=== PATIENT | female | born 1975 | race Caucasian/White ===

== ENCOUNTER 2023-06-30 13:35 | Emergency (ER) | payer OTHER, SELFPAY ==
[2023-06-30] MEDS ORDERED: Sodium Chloride 0.9% 10 ML Syringe FLUSH PRN (13:51)
[2023-06-30 14:00] LABS: BASOPHILS PERCENT AUTO 0.3 % (0.2-1.2); EOSINOPHILS ABSOLUTE AUTO 0.1 x10^3/uL (0.0-0.5); EOSINOPHILS PERCENT AUTO 0.8 % (0.0-4.0); HEMATOCRIT 41.2 % (33.0-47.0); HEMOGLOBIN 14.3 g/dL (12.0-16.0); LYMPHOCYTES ABSOLUTE AUTO 1.8 x10^3/uL (1.0-4.8); LYMPHOCYTES PERCENT AUTO 23.9 % (25.0-50.0); MEAN CORPUSCULAR HEMOGLOBIN 32.4 pg (26.0-32.0); MEAN CORPUSCULAR HGB CONC 34.7 g/dL (32.0-36.0); MEAN CORPUSCULAR VOLUME 93.2 fL (78.0-93.0); MONOCYTES ABSOLUTE AUTO 0.4 x10^3/uL (0.0-0.8); MONOCYTES PERCENT AUTO 5.9 % (2.0-11.0); NEUTROPHILS ABSOLUTE AUTO 5.2 x10^3/uL (1.8-7.7); NEUTROPHILS PERCENT AUTO 69.1 % (50.0-80.0); PLATELET COUNT,PLT 215 x10^3/uL (130-400); RED BLOOD CELL COUNT 4.42 x10^6/uL (4.00-5.50); WHITE BLOOD CELL COUNT,WBC 7.5 x10^3/uL (4.0-10.0)
[2023-06-30] MEDS: Sodium Chloride 0.9% 1,000 ML IV SCH (14:00)
[2023-06-30] MEDS: Ondansetron 4 MG/2 ML SDV IVPUSH ONE (14:17)
[2023-06-30] MEDS: Ketorolac 15 MG/ML SDV IVPUSH ONE (14:17)
[2023-06-30] MEDS: HYDROmorphone 0.5 MG/0.5 ML Syringe IVPUSH ONE (14:18)
[2023-06-30 14:32] LABS: A/G RATIO 1.13; ALANINE AMINOTRANSFERASE,ALT 13 U/L (14-59); ALBUMIN 4.3 g/dL (3.4-5.0); ALKALINE PHOSPHATASE 71 U/L (46-116); ANION GAP 14.9 mmol/L (5-15); ASPARTATE AMNIOTRANSFERASE,AST 14 U/L (15-37); BLOOD UREA NITROGEN,BUN 13 mg/dL (7-18); CALCIUM 9.8 mg/dL (8.5-10.1); CARBON DIOXIDE,CO2 30 mmol/L (21-32); CHLORIDE,CL 102 mmol/L (98-107); ESTIMATED GFR 70 mL/min (>=60); GLUCOSE RANDOM 70 mg/dL (70-99); LIPASE 75 U/L (19-71); POTASSIUM,K 3.9 mmol/L (3.5-5.1); PROTEIN TOTAL,TP 8.1 g/dL (6.4-8.2); SODIUM,NA 143 mmol/L (136-145)
[2023-06-30 14:33] LABS: C-REACTIVE PROTEIN < 0.50 mg/dL (<=0.50)
[2023-06-30 15:03] LABS: INR 0.9 (0.9-1.1); PROTHROMBIN TIME 9.6 SEC (8.9-11.5); PTT,PARTIAL THROMBOPLSTIN TIME 25.6 SEC (21.9-33.8)
== END 2023-06-30 15:30 | disposition home or self-care (01) ==
LOC: VM.ED 13:35
DX: R10.11 Right upper quadrant pain (principal); Z87.891 Personal history of nicotine dependence; Z88.6 Allergy status to analgesic agent; Z91.030 Bee allergy status
CPT/HCPCS: 80053; 83690; 83735; 84484; 85025; 85610; 85730; 86140; 93005; 96361; 96374; 96375; 99285; J1170; J1885; J2405; J7030; 93010; 99284

== ENCOUNTER 2023-08-14 21:02 | Emergency (ER) | payer SELFPAY ==
[2023-08-14 21:52] LABS: BASOPHILS PERCENT AUTO 0.2 % (0.2-1.2); EOSINOPHILS ABSOLUTE AUTO 0.2 x10^3/uL (0.0-0.5); EOSINOPHILS PERCENT AUTO 2.9 % (0.0-4.0); HEMATOCRIT 38.4 % (33.0-47.0); HEMOGLOBIN 13.3 g/dL (12.0-16.0); IMMATURE GRAN ABSOLUTE AUTO 0.01 x10^3/uL (0.00-0.07); LYMPHOCYTES ABSOLUTE AUTO 2.5 x10^3/uL (1.0-4.8); LYMPHOCYTES PERCENT AUTO 44.8 % (25.0-50.0); MEAN CORPUSCULAR HEMOGLOBIN 31.9 pg (26.0-32.0); MEAN CORPUSCULAR HGB CONC 34.6 g/dL (32.0-36.0); MEAN CORPUSCULAR VOLUME 92.1 fL (78.0-93.0); MONOCYTES ABSOLUTE AUTO 0.4 x10^3/uL (0.0-0.8); MONOCYTES PERCENT AUTO 7.5 % (2.0-11.0); NEUTROPHILS ABSOLUTE AUTO 2.4 x10^3/uL (1.8-7.7); NEUTROPHILS PERCENT AUTO 44.4 % (50.0-80.0); PLATELET COUNT,PLT 229 x10^3/uL (130-400); RED BLOOD CELL COUNT 4.17 x10^6/uL (4.00-5.50); WHITE BLOOD CELL COUNT,WBC 5.5 x10^3/uL (4.0-10.0)
[2023-08-14 22:01] LABS: A/G RATIO 1.24; ALANINE AMINOTRANSFERASE,ALT 21 U/L (14-59); ALBUMIN 4.1 g/dL (3.4-5.0); ALKALINE PHOSPHATASE 71 U/L (46-116); ANION GAP 18.7 mmol/L (5-15); ASPARTATE AMNIOTRANSFERASE,AST 14 U/L (15-37); BILIRUBIN TOTAL 0.9 mg/dL (0.2-1.0); BLOOD UREA NITROGEN,BUN 9 mg/dL (7-18); CARBON DIOXIDE,CO2 23 mmol/L (21-32); CHLORIDE,CL 107 mmol/L (98-107); CREATININE 0.9 mg/dL (0.55-1.02); ESTIMATED GFR 79 mL/min (>=60); GLUCOSE RANDOM 103 mg/dL (70-99); POTASSIUM,K 3.7 mmol/L (3.5-5.1); PROTEIN TOTAL,TP 7.4 g/dL (6.4-8.2); SODIUM,NA 145 mmol/L (136-145)
[2023-08-14 22:07] LABS: APPEARANCE,URINE CLEAR (CLEAR); BILIRUBIN,URINE NEGATIVE (NEGATIVE); COLOR,URINE YELLOW (YELLOW); GLUCOSE,URINE NEGATIVE (NEGATIVE); KETONES,URINE NEGATIVE (NEGATIVE); LEUKOCYTE ESTERASE,URINE SMALL (NEGATIVE); NITRITE,URINE NEGATIVE (NEGATIVE); OCCULT BLOOD,URINE NEGATIVE (NEGATIVE); PH,URINE 5.5 (5.0-8.0); PROTEIN,URINE NEGATIVE (NEGATIVE); UROBILINOGEN,URINE 0.2 EU/dL (0.2)
[2023-08-14 22:10] LABS: AMPHETAMINES SCREEN, URINE NEGATIVE (NEGATIVE); BARBITURATE SCREEN,URINE NEGATIVE (NEGATIVE); BENZODIAZEPINES SCREEN,URINE NEGATIVE (NEGATIVE); COCAINE METABOLITES,URINE NEGATIVE (NEGATIVE); METHADONE SCREEN, URINE NEGATIVE (NEGATIVE); METHAMPHETAMINE SCREEN, URINE NEGATIVE (NEGATIVE); OXYCODONE SCREEN,URINE NEGATIVE (NEGATIVE); PCP SCREEN,URINE NEGATIVE (NEGATIVE); THC SCREEN,URINE 50 NG/ML POSITIVE (NEGATIVE)
[2023-08-14 22:11] LABS: BUPRENORPHINE SCREEN,URINE NEGATIVE (NEGATIVE)
[2023-08-14 22:17] LABS: BACTERIA,URINE OCCASIONAL /HPF (NOT SEEN); RBC,URINE NOT SEEN /HPF (NOT SEEN); SQUAMOUS EPITHELIAL CELLS,UR OCCASIONAL /HPF (NOT SEEN); WBC,URINE 0-5 /HPF (NOT SEEN)
== END 2023-08-14 23:58 ==
LOC: VM.ED 21:02
DX: R45.851 Suicidal ideations (principal); F10.10 Alcohol abuse, uncomplicated; G56.41 Causalgia of right upper limb; Z90.49 Acquired absence of other specified parts of digestive tract; Z87.891 Personal history of nicotine dependence; Z88.6 Allergy status to analgesic agent; Z91.030 Bee allergy status
CPT/HCPCS: 36415; 80053; 80143; 80179; 80305-QW; 80307; 81001; 81025; 82140; 85025; 87086; 99285

== ENCOUNTER 2024-09-17 21:39 | Emergency (ER) | payer MEDICAID ==
[2024-09-17] MEDS: Take Home: Amoxicillin/Clavulanate K 875-125 MG Tab, 2 Tab Pack PO ONE (22:05)
== END 2024-09-17 22:35 | disposition home or self-care (01) ==
LOC: VM.ED 21:39
DX: S81.852A Open bite, left lower leg, initial encounter (principal); Z88.6 Allergy status to analgesic agent; Z91.030 Bee allergy status; W54.0XXA Bitten by dog, initial encounter; Y93.89 Activity, other specified
CPT/HCPCS: 99284; A9270; 99282